=== PATIENT | female | born 2000 | race Caucasian/White ===

== ENCOUNTER → 2023-10-23 07:53 | Outpatient (REF) | payer BC, SELFPAY | LOC: HO.CARD 07:53 | PROVIDERS: PCP Physician Assistant; Visit Provider Physician Assistant | DX: I51.7 Cardiomegaly (principal) | CPT/HCPCS: 93306; 93356 ==

== ENCOUNTER → 2023-10-23 08:02 | Outpatient (BNV) | payer BC, SELFPAY | PROVIDERS: PCP Physician Assistant; Visit Provider Internal Medicine Cardiovascular Disease | DX: I34.8 Other nonrheumatic mitral valve disorders (principal) | CPT/HCPCS: 93306 ==